=== PATIENT | female | born 1990 | race Caucasian/White ===

== ENCOUNTER 2017-02-16 18:50 | Emergency (ER) | payer MEDICAID, SELFPAY | END 2017-02-16 20:15 | disposition left against medical advice (07) | LOC: ER 20:25 | PROVIDERS: Emergency Provider Emergency Medicine; Family Provider Family Medicine | DX: Z53.29 Procedure and treatment not carried out because of patient's decision for other reasons (principal) | CPT/HCPCS: 99211 ==

== ENCOUNTER → 2020-05-01 13:46 | Outpatient (CLI) | payer MEDICAID, SELFPAY ==
[2020-05-01 15:23] LABS: HCG,Quantitative < 2 mIU/ml (0-5.42)
== END ==
PROVIDERS: Visit Provider Nurse Practitioner Obstetrics & Gynecology
DX: Z34.90 Encounter for supervision of normal pregnancy, unspecified, unspecified trimester (principal)
CPT/HCPCS: 36415; 84702

== ENCOUNTER → 2020-08-24 11:28 | Outpatient (CLI) | payer MEDICAID, SELFPAY ==
[2020-08-24 14:05] LABS: HCG,Quantitative 109040 mIU/ml (0-5.42)
== END ==
PROVIDERS: Visit Provider Nurse Practitioner Obstetrics & Gynecology
DX: Z34.91 Encounter for supervision of normal pregnancy, unspecified, first trimester (principal)
CPT/HCPCS: 36415; 84702

== ENCOUNTER → 2020-09-03 08:05 | Outpatient (CLI) | payer MEDICAID, SELFPAY ==
--- NOTE | 2020-09-03 08:06 | US_ITS ---
PROCEDURE: US OB <= 14 WEEKS FETUS CLINICAL INDICATION: for dates COMPARISON: No exams were available for comparison FINDINGS: An intrauterine gestational sac is present with a pole with a crown-rump length of 5.9cm correlating to gestational age of 12weeks 5days. heart tones are present with an FHR of 139bpm. Yolk sac is noted. Focal anechoic lesion is noted in the right ovary measuring up to 2.2 x 1.6 centimeters, may represent a cyst. IMPRESSION: Single viable intrauterine gestation with gestational age of 12 weeks and 5 days. Estimated due date by Ultrasound is 03/13/2021 Dictated by: Apple Jiang 09/03/2020 10:57 Apple Jiang in [facility] 09/03/2020 10:57
== END ==
PROVIDERS: PCP Family Medicine; Visit Provider Nurse Practitioner Obstetrics & Gynecology
DX: Z34.91 Encounter for supervision of normal pregnancy, unspecified, first trimester (principal)
CPT/HCPCS: 76801

== ENCOUNTER → 2020-09-10 14:06 | Outpatient (CLI) | payer MEDICAID, SELFPAY ==
[2020-09-10 14:46] LABS: Basophils % 0.2 % (0.1-2.0); Eosinophils # 0.1 K/mm3 (0.0-0.4); Eosinophils % 1.3 % (0.1-12.0); Hematocrit 37.7 % (37.0-47.0); Hemoglobin 12.5 g/dL (12.2-16.2); Lymphocytes # 1.5 K/mm3 (0.7-4.5); Lymphocytes % 20.5 % (10-50); Mean Corpuscular HGB Conc 33.2 g/dL (31.8-35.4); Mean Corpuscular Hemoglobin 30.8 pg (27.0-31.2); Mean Corpuscular Volume 92.7 fl (81-99); Mean Platelet Volume 7.3 fl (7.4-10.4); Monocytes # 0.4 K/mm3 (0.1-1.0); Monocytes % 4.9 % (1.7-9.3); Neutrophils # 5.3 K/mm3 (1.8-7.8); Neutrophils % 73.1 % (37.0-80.0); Platelet Count 241 K/mm3 (142-424); Red Blood Count 4.07 M/mm3 (4.20-5.40); Red Cell Distribution Width 12.7 % (11.5-17.5); White Blood Count 7.2 K/mm3 (4.8-10.8)
[2020-09-12 08:32] LABS: HIV Screen 4th Generation wRfx Non Reactive (Non Reactive); HSV 1 IgG, Type Spec <0.91 index (0.00-0.90); HSV 2 IgG, Type Spec <0.91 index (0.00-0.90)
[2020-09-12 09:23] LABS: Hepatitis B Surface Antigen Negative (Negative); Hepatitis C Antibody <0.1 s/co ratio (0.0-0.9)
[2020-09-12 14:07] LABS: Rapid Plasma Reagin Ab Titer Non Reactive (NonRea<1:1)
== END ==
PROVIDERS: Visit Provider Nurse Practitioner Obstetrics & Gynecology
DX: Z34.01 Encounter for supervision of normal first pregnancy, first trimester (principal); Z3A.01 Less than 8 weeks gestation of pregnancy
CPT/HCPCS: 36415; 85025; 86592; 86695; 86703; 86762; 86790; 86850; 87340; 87380; G0432

== ENCOUNTER → 2020-10-23 15:07 | Outpatient (CLI) | payer MEDICAID, SELFPAY ==
--- NOTE | 2020-10-23 15:08 | US_ITS ---
PROCEDURE: US OB /MATERNAL DETAIL CLINICAL INDICATION: 20 WEEK GESTATION COMPARISON: US US OB <= 14 WEEKS FETUS from 09/03/2020 FINDINGS: Single live fetus is present in cephalic presentation. The cervix is closed measuring 5 cm transabdominal. The placenta is posterior and grade 1. No previa or abruption.. Complete survey performed and was unremarkable on the submitted images as in PACS. No discrete anomalies identified on survey imaging by technologist. Active fetus. Three-vessel cord with satisfactory umbilical cord insertion. 4- chamber heart noted. Survey of brain & ventricles Unremarkable. Face and neck survey unremarkable. Diaphragm and chest views unremarkable. Abdomen: Both kidneys noted and unremarkable. Stomach noted and satisfactory. Spine: Survey of the spine satisfactory with no anomalies identified nor imaged. Both arms and legs noted. Amniotic Fluid: Adequate. Maternal adnexa: No significant findings. Measurements: Average ultrasound age 19weeks 6days. Gestational Age 19weeks 6days Estimated due date by ultrasound age 0103/13/2021. Estimated weight 323g BPD = 19weeks 6days OFD = 20weeks HC = 19weeks 2days AC = 20weeks 2days FL = 19weeks 6days Growth Percentile= 51% Heart Rate = 149bpm Cerebellum = 19weeks 6days Humerus = 19weeks 4days HC/AC is 1.09 CI is 0.79 FL/BPD is 0.69 FL/AC is 0.21 IMPRESSION: Live IUP at 19 weeks 6 days in cephalic presentation. No obvious anomalies. Please see above for detail. Dictated by: Walker Najera MD 10/26/2020 09:05 Walker Najera MD in [facility] 10/26/2020 09:05
== END ==
PROVIDERS: PCP Family Medicine; Visit Provider Nurse Practitioner Obstetrics & Gynecology
DX: Z36.0 Encounter for antenatal screening for chromosomal anomalies (principal)
CPT/HCPCS: 76811

== ENCOUNTER → 2020-12-12 11:52 | Outpatient (CLI) | payer MEDICAID, SELFPAY ==
[2020-12-12 13:41] LABS: Glucose 1 Hour 94 mg/dL (74-100)
[2020-12-12 14:30] LABS: Glucose,Fasting 91 mg/dl (74-100)
== END ==
PROVIDERS: Visit Provider Nurse Practitioner Obstetrics & Gynecology
DX: Z34.90 Encounter for supervision of normal pregnancy, unspecified, unspecified trimester (principal)
CPT/HCPCS: 36415; 82951

== ENCOUNTER → 2021-02-12 17:14 | Outpatient (CLI) | payer MEDICAID, SELFPAY | PROVIDERS: Visit Provider Nurse Practitioner Obstetrics & Gynecology | DX: Z34.90 Encounter for supervision of normal pregnancy, unspecified, unspecified trimester (principal); Z3A.35 35 weeks gestation of pregnancy | CPT/HCPCS: 86403 ==

== ENCOUNTER → 2021-03-06 14:40 | Outpatient (CLI) | payer MEDICAID, SELFPAY ==
[2021-03-06 15:22] LABS: Basophils # 0.1 K/mm3 (0-0.2); Basophils % 0.6 % (0.1-2.0); Eosinophils # 0.1 K/mm3 (0.0-0.4); Eosinophils % 0.6 % (0.1-12.0); Hematocrit 36.6 % (37.0-47.0); Hemoglobin 12.4 g/dL (12.2-16.2); Lymphocytes # 1.5 K/mm3 (0.7-4.5); Lymphocytes % 16.7 % (10-50); Mean Corpuscular HGB Conc 33.8 g/dL (31.8-35.4); Mean Corpuscular Hemoglobin 34.5 pg (27.0-31.2); Mean Corpuscular Volume 102.1 fl (81-99); Mean Platelet Volume 8.5 fl (7.4-10.4); Monocytes # 0.4 K/mm3 (0.1-1.0); Monocytes % 4.5 % (1.7-9.3); Neutrophils # 6.9 K/mm3 (1.8-7.8); Neutrophils % 77.6 % (37.0-80.0); Platelet Count 238 K/mm3 (142-424); Red Blood Count 3.58 M/mm3 (4.20-5.40); Red Cell Distribution Width 13.4 % (11.5-17.5)
[2021-03-06 16:07] LABS: Anion Gap 11.7 mEq/L (5-15); Blood Urea Nitrogen 5 mg/dl (7-17); Calcium 9.1 mg/dl (8.4-10.2); Carbon Dioxide 22 mmol/L (22.0-30.0); Chloride 103 mmol/L (98-107); Estimated Glomerular Filt Rate 190 ml/min (>60); GFR (African American) 230 ML/MIN (>60); Glucose 90 mg/dl (74-100); Potassium 3.7 mmoL/L (3.5-5.1); Sodium 133 mmol/L (136-145)
== END ==
PROVIDERS: Visit Provider Nurse Practitioner Obstetrics & Gynecology
DX: Z34.90 Encounter for supervision of normal pregnancy, unspecified, unspecified trimester (principal)
CPT/HCPCS: 36415; 80048; 85025; C9803; U0003; U0005

== ENCOUNTER 2021-03-08 04:54 | Inpatient (IN) | payer MEDICAID, SELFPAY ==
[2021-03-08] VITALS (8 sets, daily range): BP systolic 107–147; BP diastolic 59–88; PULSE 68–98; RESP 16–18; TEMP 36.5; O2SAT 98–100; BMI 40.2
[2021-03-08 06:21] LABS: Microscopic, Urine URINE MICROSCOPIC (MICROSCOPIC)
[2021-03-08 06:21] LABS: Coronavirus 19, PCR Not Detected (NotDetected); Influenza A, PCR Not Detected (NotDetected); Influenza B, PCR Not Detected (NotDetected)
[2021-03-08 06:23] LABS: Appearance,Urine CLEAR (Clear); Bilirubin,Urine Negative (Negative); Blood, Urine Negative (Negative); Color,Urine YELLOW (Yellow); Glucose,Urine (UA) Negative (Negative); Ketones,Urine Negative (Negative); Leukocyte Esterase,Urine TRACE (Negative); Nitrate,Urine Negative (Negative); Protein,Urine Negative (Negative); Urobilinogen,Urine 0.2 EU/dl (0.2)
--- NOTE | 2021-03-08 07:13 | P.PN_ITS ---
[facility] Anesthesia Checklist - Patient Identification Patient Identification: Arm Band, Verbal (Name & ) - Structural Data Admitted From: Home Planned Operative Procedure/s: Repeat Consent for Planned Operative Procedure(s) Verified: Yes Verified Documents: Surgical Consent - NPO Status Verified Time NPO: 00:00 - Chart Verification Results Verified: CBC, BMP - Airway Assessment C-Spine Mobility Assessed: Yes TMJ Mobility Assessed: Yes Dentition: Good Dentition - Neurological Assessment Level of Consciousness: Awake, Alert, Appropriate - Anesthesia Plan Anesthesia Risk discussed: Yes ASA Class: II Anesthesia Type: Spinal [facility] History I have reviewed the patient's past medical history: Yes *Have you ever received a pneumonia vaccine?: No *Have you received a flu vaccine this season?: No Anesthesia experience/problems:: none Other Surgeries: Yes: No Previous Surgery, Amputation: No Fractures: No - *Social History Smoking Status: Never smoker Alcohol Intake: never Alcohol Intake Frequency:: other Substance Use Type: denies use *Occupational Status:: employed *Travel in the last 8 weeks: None Family Hx:: No significant family history Para: 4
[2021-03-08 07:48] LABS: Barbiturates Screen,Urine Negative ng/ml (<200)
[2021-03-08 07:49] LABS: Amphetamine/Metha Screen,Urine Negative ng/ml (<1000); Benzodiazepines Screen,Urine Negative ng/ml (<200)
[2021-03-08 07:50] LABS: Cannabinoid Screen,Urine Negative ng/ml (<50); Cocaine Screen,Urine Negative ng/ml (<300)
[2021-03-08 07:51] LABS: Methadone Screen,Urine Negative ng/ml (<300)
[2021-03-08 07:52] LABS: Opiate Screen,Urine Negative ng/ml (<300); Phencyclidine Screen,Urine Negative ng/ml (<25)
--- NOTE | 2021-03-08 08:26 | HMH.OPNOTE ---
Date of procedure: 03/08/21 Pre-op Diagnosis:: Term , previous section, umbilical hernia Post-op Diagnosis:: Term , previous section, umbilical hernia Procedure performed:: Repeat lower segment transverse section. Surgeon:: Serg Lara MD Employment Appeals Examiner(s):: Dr. White RECEIVING WORKER:: Surendra Tate Anesthesia: spinal Estimated blood loss (mL): 1,000 Clinical Note:: She is a 30-year-old 4 para 3 at 39+ weeks gestational age. She has had a previous section for twins and as a result of that was offered repeat lower segment transverse section at term. She also had an umbilical hernia and we were going to have Dr. White fix this intraoperatively. Operative findings:: She delivered a liveborn male child at 7:47 AM on the morning of March 11, 2021. The baby weighed 8 pounds 1 ounce and had Apgars of 8 at 1 minute and 9 at 5 minutes. Ovaries and tubes appeared normal. Operative note:: She was taken to the operating room where spinal anesthesia was found be adequate. She was prepped and draped in normal sterile fashion in the supine position with a leftward tilt. A Luo catheter was in the bladder. A Pfannenstiel skin incision was made with knife then carried through to the underlying layer of fascia with cautery. The fascia was opened in the midline with cautery and extended laterally using Berrios scissors. Heydi clamps were applied to the superior aspect of the fascial incision which was tented up and the underlying rectus muscles dissected off using cautery. The Heydi clamps were then applied to the inferior aspect of the fascial incision which in a similar fashion was tented up and the underlying rectus muscles dissected off using cautery. The rectus muscles were then in the midline, the peritoneum identified, and entered sharply with Metzenbaum scissors. This incision was then extended superiorly and inferiorly with cautery. We had good visualization of the bladder inferiorly. We then inserted an extra-large Octavio retractor. The bladder peritoneum was then opened in the midline and extended laterally using Metzenbaum scissors. A bladder flap was created digitally. Transverse incision was made through the uterine muscle to the amnion. This incision was then extended laterally using fingers traction. The amnion was entered sharply with knife. There was clear amniotic fluid. The 's head was then delivered atraumatically. A loose nuchal cord was then reduced. This was followed by the anterior shoulder and the rest of the infant's body atraumatically. The oropharynx and nasopharynx were bulb suctioned. The infant was then handed off to Dr. fuentes who assigned Apgars of 8 at 1 minute and 9 at 5 minutes. We then obtained cord blood. Using gentle traction on the cord and countertraction on the fundus I was able to easily deliver the placenta intact. It had a normal three-vessel cord. The uterus was then cleared of clots and debris . The uterine incision was then closed using running 0 Vicryl suture in a locked fashion. A second layer of the same suture was used to imbricate the first layer. The bladder peritoneum was then closed using running 2-0 Vicryl suture in a locked fashion. The gutters and cul-de-sac were then cleared of clots and debris . There was some bleeding on the right-hand side of the incision and we noted that there was a hematoma posteriorly. I opened up the retroperitoneum posteriorly and found a small blood vessel that was bleeding. We applied a surgical clip across this. We then inserted a large piece of Gelfoam in the defect of the posterior retroperitoneum. I also then placed a large piece of Surgicel over this. Once again hemostasis was assured. The uterus was then returned to the abdominal cavity. The peritoneum was grasped with Asmita clamps and closed using running 2-0 Vicryl suture. The rectus muscles were then reapproximated using running 0 Vicry
--- NOTE | 2021-03-08 08:33 | HMH.OBAPHP ---
OB - H&P: HPI Antepartum - History of Present Illness Chief complaint: Term , previous section History of present illness: She is a 30-year-old 4 para 3 who had twins with her last . She had a for the twins. As result of that she is offered repeat lower segment transverse section at term. - History of Present Criteria for establishing EDC:: LMP confirmed by 1st trimester US care: good care Ultrasounds: normal 1st trimester US Obstetrical complications: previous Medical complications: none - Labs Blood type: O (+) positive Rubella: immune RPR/VDRL: nonreactive GBS status: negative HBsAG: negative [facility] History I have reviewed the patient's past medical history: Yes *Have you ever received a pneumonia vaccine?: No *Have you received a flu vaccine this season?: No Anesthesia experience/problems:: none Other Surgeries: Yes: No Previous Surgery, Amputation: No Fractures: No - *Social History Smoking Status: Never smoker Alcohol Intake: never Alcohol Intake Frequency:: other Substance Use Type: denies use *Occupational Status:: employed *Travel in the last 8 weeks: None Family Hx:: No significant family history Para: 4 Review of Systems - Review of Systems Review of systems:: pertinent systems reviewed and negative unless documented below Meds Home Medications Medication Instructions Recorded Confirmed Type Multivit-Minerals/Folic Acid 2 tab PO DAILY 03/08/21 03/08/21 History [Womens Daily Gummies] RX: Valacyclovir HCl [Valacyclovir] 1,000 mg PO DAILY 03/08/21 03/08/21 History Allergies Allergy/AdvReac Type Severity Reaction Status Date / Time No Known Allergies Allergy Verified 03/05/21 10:03 OB - H&P: Exam - Physical Exam Vital signs: Temp Pulse Resp BP Pulse Ox 97.7 F 98 H 18 147/88 H 99 03/08/21 06:25 03/08/21 06:25 03/08/21 06:25 03/08/21 06:25 03/08/21 06:25 - Constitutional no acute distress - Routine HEENT Exam Head: Present: normocephalic Eye: Present: EOMI, PERRL ENT: Present: mucous membranes moist - Routine Neck Exam Present: supple, full ROM - Routine Respiratory Exam Absent: accessory muscle use (good air entry bilaterally), respiratory distress, wheezes, crackles - Routine Cardiovascular Exam Present: RRR. Absent: murmur - Routine Abdominal Exam Present: soft, normoactive bowel sounds. Absent: tenderness, distended, guarding - Routine Rectal Exam Patient deferred: visual exam, digital exam - Routine Exam Patient deferred: external exam, groin exam, perineal exam - Routine Extremities Exam Present: full ROM. Absent: cyanosis, edema - Routine Skin Exam Present: intact. Absent: cyanosis - Routine Neurological Exam Present: alert, oriented X3 - Routine Psychiatric Exam Present: normal affect OB - Results - Labs Labs: Urine 03/08/21 Range/Units 05:05 Urine Color Yellow (Yellow) Urine Appearance Clear (Clear) Urine pH 6.0 (5.0-8.5) Ur Specific [place] 1.020 (1.005-1.030) Urine Protein Negative (Negative) Urine Glucose (UA) Negative (Negative) OB - A/P Antepartum (1) Previous section complicating Status: Acute (2) Delivery by section of full-term infant Status: Acute (3) Umbilical hernia Status: Acute - Additional Plan Planning to breastfeed?: No Plan: other Additional Information:: She is here for repeat lower segment transverse section at term.
--- NOTE | 2021-03-08 08:35 | P.PN_ITS ---
[facility] Anesthesia Record Part I Intake, IV Amount: 2,000 Estimated blood loss (mL): 1,000 Urine output (mL): 200 Blood Pressure: 112/59 SaO2: 98 Pulse Rate: 76 Respiratory Rate: 16 Temperature: 97.7 F Patient is:: Awake, Stable Stable to PACU at:: 08:30
--- NOTE | 2021-03-08 12:46 | HMH.PHAVTE ---
[facility] Pharmacy VTE Monitoring - Patient Demographics Admission date: 03/08/21 Report Date: 03/08/21 Time: 12:46 Allergies/Adverse Reactions: Patient Allergies No Known Allergies Allergy (Verified 03/05/21 10:03) Height: 1.57 m Weight: 99.79 kg Patient Problems: Current Active Problems Previous section complicating (Acute) Delivery by section of full-term (Acute) Umbilical hernia (Acute) - Prophylaxis VTE Prophylaxis Ordered?: Yes Types of VTE Prophylaxis: IPCS Thigh High Location of Applied Device: Bilateral Lower Extremeties
[2021-03-08 13:08] LABS: Microscopic,Cath URINE MICROSCOPIC (MICROSCOPIC)
[2021-03-08 13:14] LABS: Appearance,Urine/Cath CLEAR (Clear); Bilirubin,Cath Negative (Negative); Blood, Urine/Cath Negative (Negative); Color,Urine/Cath YELLOW (Yellow); Glucose,Urine/Cath (UA) Negative (Negative); Ketones,Urine/Cath Negative (Negative); Leukocyte Esterase,Cath Negative (Negative); Nitrate,Cath Negative (Negative); Protein,Urine/Cath Negative (Negative); Specific Gravity, Urine/Cath <= 1.005 (1.005-1.030); Urobilinogen,Cath 0.2 EU/dl (0.2)
[2021-03-08 13:17] LABS: RBC,Urine/Cath Occasional # /hpf (0-3); Squamous Epithelial Ur./Cath Occasional #/hpf (0-5); WBC,Urine/Cath Occasional #/hpf (0-3)
--- NOTE | 2021-03-08 13:42 | P.PN_ITS ---
[facility] Anesthesia Record Part II Discharge Time: 09:00 Destination: Obstetric PACU nurse assessment reviewed?: Yes Patient Condition:: Good Anesthesia Complications:: None Swallowing reflex intact?: Yes Cyanosis?: No Blood Pressure: 120/77 Pulse Rate: 75 Temperature: 97.7 F Mental Status: Alert & Oriented Pain level:: 0 Nausea and/or vomitting:: None Intake, IV Amount: 0
[2021-03-09 00:07] VITALS: RESP 18
[2021-03-09 02:53] VITALS: RESP 18
[2021-03-09 09:13] VITALS: BP 138/76; PULSE 107; RESP 20; TEMP 36.6; O2SAT 100
[2021-03-09 09:35] LABS: Hematocrit 34.1 % (37.0-47.0); Hemoglobin 11.6 g/dL (12.2-16.2)
--- NOTE | 2021-03-09 10:36 | P.PN_ITS ---
Internal Medicine - PN: Subj *Date: 03/09/21 *Time: 10:36 (This is and postoperative day #1. The patient is af ebrile. Vital signs stable. Wound clean.. Abdomen soft. Uterine fundus involuting well. Hgb 9.6 g. Lochia: Normal.: Stable.) Exam Vital signs and Labs for Last 24 Hours: Temp Pulse Resp BP Pulse Ox 97.8 F 107 H 20 138/76 100 03/09/21 09:13 03/09/21 09:13 03/09/21 09:13 03/09/21 09:13 03/09/21 09:13 Laboratory Results - last 24 hr 03/08/21 07:35: Urine Color Yellow, Urine Appearance Clear, Urine pH 6.0, Ur Specific [place] <= 1.005, Urine Protein Negative, Urine Glucose (UA) Negative, Urine Ketones Negative, Urine Blood Negative, Urine Nitrate Negative, Urine Bilirubin Negative, Urine Urobilinogen 0.2, Ur Leukocyte Esterase Negative, Urine RBC Occasional, Urine WBC Occasional, Ur Squamous Epith Cells Occasional, Urine Bacteria None 03/09/21 08:00: Hgb 11.6 L, Hct 34.1 L I & O for Last 24 hours: Intake & Output 03/06/21 03/07/21 03/08/21 03/09/21 11:59 11:59 11:59 11:59 Intake Total 1999 0 / 0 Balance 1999 0 / 0 Weight 220 lb Assessment and Plan (1) Previous section complicating Status: Acute Category: Surgical Code(s): O34.219 - Maternal care for unspecified type scar from previous delivery (2) Delivery by section of full-term infant Status: Acute Category: Medical Code(s): O82 - Encounter for delivery without indication (3) Umbilical hernia Status: Acute Category: Medical Code(s): K42.9 - Umbilical hernia without obstruction or gangrene
[2021-03-09 21:26] VITALS: RESP 18
[2021-03-10 01:56] VITALS: RESP 16
[2021-03-10 06:30] VITALS: RESP 16
[2021-03-10 08:31] VITALS: BP 127/85; PULSE 81; RESP 18; TEMP 36.7; O2SAT 100
--- NOTE | 2021-03-10 10:23 | HMH.ACPN2 ---
Internal Medicine - PN: Subj *Date: 03/10/21 *Time: 10:23 (This is and postoperative day #2. Patient is afebrile. Vital signs stable. Wound clean. Abdomen soft. Lochia normal. Uterine fundus involuting well. Globin 11.6 g. She will be discharged today.) Exam Vital signs and Labs for Last 24 Hours: Temp Pulse Resp BP Pulse Ox 98.1 F 81 18 127/85 100 03/10/21 08:31 03/10/21 08:31 03/10/21 08:31 03/10/21 08:31 03/10/21 08:31 I & O for Last 24 hours: Intake & Output 03/07/21 03/08/21 03/09/21 03/10/21 11:59 11:59 11:59 11:59 Intake Total 1999 0 / 0 Balance 1999 0 / 0 Weight 220 lb Assessment and Plan (1) Previous section complicating Status: Acute Category: Surgical Code(s): O34.219 - Maternal care for unspecified type scar from previous delivery (2) Delivery by section of full-term Status: Acute Category: Medical Code(s): O82 - Encounter for delivery without indication (3) Umbilical hernia Status: Acute Category: Medical Code(s): K42.9 - Umbilical hernia without obstruction or gangrene
--- NOTE | 2021-03-10 10:25 | P.DS_ITS ---
General - General Admission date:: 03/08/21 Discharge date: 03/10/21 (This 30-year-old 4, now para 4, Ab0 white female was admitted at 39-2/7 weeks for repeat section. She also was noted to have an abdominal hernia, which will be repaired at a later date. The date of admission, she was taken to the operating room, where she underwent a repeat low transverse cervical section, without complications. The baby was an 8/9, 8 pound 1 ounce, 20 inch male infant, who is bottlefeeding, has been circumcised, and has done well. and postoperatively, the patient has done well. She is eating and ambulating, and has had a bowel movement. Her wound is clean. Her abdomen is soft. Her lochia is normal. Her uterine fundus has involuted well. Her hemoglobin is 11.6 g. She is discharged home on the second /postoperative day on iron and vitamins, and on Percocet 5/325 (#20), 1 p.o. every 6 hours as needed pain. She is given appropriate instructions as to diet, exercise, and wound care, and she is to return to Dr. Lara's office as scheduled for care. Her blood type is O+. Her rubella titer is immune.) Hospital Course Rhogam Administration: Not Indicated Objective Vital signs: Temp Pulse Resp BP Pulse Ox 98.1 F 81 18 127/85 100 03/10/21 08:31 03/10/21 08:31 03/10/21 08:31 03/10/21 08:31 03/10/21 08:31 DS: Diagnosis - Discharge Diagnosis (1) Previous section complicating Status: Acute (2) Delivery by section of full-term infant Status: Acute (3) Umbilical hernia Status: Acute Discharge Plan - Patient Discharge Instructions Additional Instructions: Nothing in the vagina for 6 weeks, no heavy lifting or strenuous activity. Patient Instructions: Depression, Hemorrhage, DI for Pre- eclampsia, DI for Surgical Site Infection, DI for Postoperative Pain, [facility] Post Discharge Instructions, Preventing the Spread of Coronavirus Discharge Instructions - Follow up Plan Follow up with: Jhonny White MD [Staff Physician] - 1 month Condition at discharge:: Stable Home Medications: Home Medications Medication Instructions Recorded Confirmed Type Multivit-Minerals/Folic Acid 400 mcg PO DAILY 03/08/21 03/08/21 History [Womens Daily Gummies] Valacyclovir HCl [Valacyclovir] 1,000 mg PO DAILY 03/08/21 03/08/21 History Prescriptions/Medication Reconciliation: Continued Valacyclovir HCl [Valacyclovir] 1,000 mg PO DAILY Multivit-Minerals/Folic Acid [Womens Daily Gummies] 400 mcg PO DAILY - Problem Reconciliation Problems Reviewed?: Yes
== END 2021-03-10 13:05 | disposition home or self-care (01) | DRG 788 ==
PROVIDERS: Admitting Provider Nurse Practitioner Obstetrics & Gynecology; PCP Family Medicine; Visit Provider Nurse Practitioner Obstetrics & Gynecology
PROC: 10D00Z1 Extraction of Products of Conception, Low, Open Approach (ICD-10-PCS; CPT 59514; principal; 2021-03-08 07:30)
DX: O34.211 Maternal care for low transverse scar from previous cesarean delivery (principal); K42.9 Umbilical hernia without obstruction or gangrene; Z3A.39 39 weeks gestation of pregnancy; N85.8 Other specified noninflammatory disorders of uterus; Z37.0 Single live birth
CPT/HCPCS: 59514; 36415; 59025; 80048; 80305; 81001; 85014; 85018; 85025; 86850; 94761; C9290; C9803; G0283; J2405; U0003; U0005

== ENCOUNTER 2023-07-06 18:52 | Emergency (ER) | payer MEDICAID, SELFPAY ==
[2023-07-06 19:10] VITALS: BP 222/124; PULSE 75; RESP 20; TEMP 36.8; O2SAT 98; BMI 34.7
[2023-07-06] MEDS: TET/DIPHTH/PERT-ADULT 0.5ML SYRINGE 0.5 ML IM (19:34)
--- NOTE | 2023-07-06 19:58 | ED_ITS ---
Discharge Plan Disposition Patient Disposition: Home, Self-Care Condition: Good Prescriptions Prescriptions: New losartan 25 mg tablet 25 mg PO DAILY Qty: 7 0RF azithromycin [Zithromax Z-Aravind] 250 mg tablet See Rx Instructions .ROUTE .COMPLEX 5 Days Qty: 6 0RF Rx Instructions: For 250 mg dose pack: take 500 mg today (day 1), then 250 mg for 4 days (days 2-5) No Action norgestimate-ethinyl estradiol [Sprintec (28)] 0.25-35 mg-mcg tablet 1 tab PO DAILY Qty: 28 12RF Referrals Follow up/Referrals: Sony Naqvi [Primary Care Provider] - See instructions Activity Restrictions/Add. Instructions Additional Instructions/Restrictions: Take medication as prescribed Follow up with your family Doctor in the next couple of days for blood pressure recheck and further treatment Clean wounds well with antibacterial soap and water Follow up with your Family Doctor if any signs of infection Clinical Impressions Clinical Impression: Cat scratch Instructions Patient Instructions: Losartan, Azithromycin, DI for Cat Scratch Disease/Fever Discharge ED Provider: Lo Velasquez [facility] General Stated complaint: AO05/ cat scrathes on scalp Mode of Arrival: Ambulatory Source of Information: Patient Limitations: No Limitations Time Seen by Provider: 07/06/23 19:58 Description of Symptoms (Recalled from Triage Doc. by RN): PATIENT C/O CAT SCRATCHES TO HEAD AND FACE TODAY HEENT Symptoms (Recalled from RN notes): Yes Resp Symptoms (Recalled from RN notes): No Skin Symptoms (Recalled from RN notes): Yes MS Symptoms (Recalled from RN notes): No Functional Status (Recalled from RN notes): WNL History of Present Illness Provider Complaint: Patient states that she was at home and she was holding her cat when it got startled by a dog and the cat climb her scratching her several times on her face, on top of her head and her hand States that she was worried about infection and not sure when her last tetanus shot was so she came in Related Data Previous Rx's Medication Instructions Recorded norgestimate 0.25 mg-ethinyl 1 tab PO DAILY #28 tabs 08/07/22 estradiol 35 mcg tablet (Sprintec (28)) azithromycin 250 mg tablet See Rx Instructions PO .COMPLEX 5 07/06/23 (Zithromax Z-Aravind) days #6 tabs losartan 25 mg tablet 25 mg PO DAILY #7 tabs 07/06/23 Allergies Allergy/AdvReac Type Severity Reaction Status Date / Time No Known Allergies Allergy Verified 08/07/22 11:16 Worker's Comp Is this a Worker's Comp case?: [facility]: The information contained in this section may have been updated after the patient was seen, as this information can be updated by other users. Medical History (Updated 07/06/23 @ 20:13 by Lo Velasquez APRN) delivery delivered Family History (Updated 08/07/22 @ 11:18 by Nita Rae CMA) Other Alcoholism Anemia Asthma Hypertension Thyroid disorder Social History Smoking Status: Never smoker second hand exposure: No alcohol intake: never substance use type: denies use current occupational status: employed Travel in the last 8 weeks: None ROS Obtained: Yes All systems reviewed & no additional complaints except as documented and Yes Systems reviewed as appropriate & no additional complaints except as documented Constitutional Constitutional: Reports system reviewed and no additional complaints, except as documented ENT Ears, Nose, Mouth, and Throat: Reports system reviewed and no additional complaints, except as documented and Reports as per HPI Cardiovascular Cardiovascular: Reports system reviewed and no additional complaints, except as documented and Reports as per HPI Respiratory Respiratory: Reports system reviewed and no additional complaints, except as documented and Reports as per HPI Gastrointestinal Gastrointestingal: Reports system reviewed and no additional complaints, except as documented and as per HPI Integumentary/Breasts Skin/Breast: Reports system reviewed and no additional complaints, except as documented, Reports as per HPI and Reports other Comments: multiple cat scratches on face, head and hand Physical Exam General General appearance: alert and in no apparent distress ENT ENT exam: Present mucous membranes moist Respiratory Respiratory exam: Present normal lung sounds bilaterally; Absent respiratory distress or wheezes Cardiovascular Cardiovascular exam: Present regular rate, normal rhythm and normal heart sounds Abdominal Exam Abdominal exam: Present soft and normal bowel sounds; Absent distention or tenderness Neurological Exam Neurological exam: Present alert, oriented X3 and normal gait Skin Skin exam: Present other (multiple superficial cat scratches on head, face and hand no active bleeding at this time) Medical Decision Making Frank Inquiry Pt receiving controlled substance: No Frank was queried for this patient: No Vital Signs: 07/06/23 19:10 Temperature 98.2 F Temperature Source Oral Pulse Rate [Left Brachial] 75 Respiratory Rate 20 Blood Pressure [Left Arm] 222/124 H Blood Pressure Mean [Left Arm] 156 Blood Pressure Source [Left Arm] Automatic Cuff Blood Pressure Position [Left Arm] Sitting 02 Sat by Pulse Oximetry 98 Oxygen Delivery Method Room Air Orders (Tests/Meds): ED MEDICATIONS Generic Name Dose Route Start Last Admin Trade Name Freq PRN Reason Stop Dose Admin Tetanus/Reduced Diphtheria/Acell Pertussis 0.5 ml 07/06/23 19:23 07/06/23 19:34 Tet/Diphth/Pert-Adult 0.5ml Syringe IM 07/06/23 19:24 0.5 ml .ONCE ONE Administration Medical Decision Narrative: Patients blood pressure found to be elevated checked multiple times still found to be elevated without headache and without vision changes will start on Losartan 25mg daily Patient advised that they cleaned wound well with peroxide and soap
[2023-07-06 20:04] VITALS: BP 192/106
[2023-07-06 20:17] VITALS: BP 192/106; PULSE 75; RESP 20; TEMP 36.8; O2SAT 98
[2023-07-06 20:34] LABS: Apearance,Urine Cloudy (Clear); Bilirubin,Urine Negative (Negative); Blood, Urine 1+ (Negative); Color,Urine Yellow (Yellow); Glucose,Urine (UA) Negative (Negative); Ketones,Urine Negative (Negative); Protein,Urine 2+ (Negative); UTC Leukocyte Esterase,Urine 1+ (Negative); UTC Nitrate,Urine Negative (Negative); UTC Pregnancy Test, Urine Negative (Negative); Urobilinogen,Urine 0.2 EU/dl (0.2)
[2023-07-06] MEDS: AZITHROMYCIN 250MG TABLET 500 MG PO (20:47)
== END 2023-07-06 20:47 | disposition home or self-care (01) ==
PROVIDERS: Emergency Provider Nurse Practitioner; PCP Family Medicine
DX: S00.01XA Abrasion of scalp, initial encounter; S60.519A Abrasion of unspecified hand, initial encounter; W55.03XA Scratched by cat, initial encounter; S00.81XA Abrasion of other part of head, initial encounter; N39.0 Urinary tract infection, site not specified; B96.89 Other specified bacterial agents as the cause of diseases classified elsewhere; R30.0 Dysuria; Z23 Encounter for immunization
CPT/HCPCS: 81003; 81025; 87077; 87086; 87088; 90715; 96372; 99204; 99212; G0463

== ENCOUNTER 2024-11-23 15:02 | Emergency (ER) | payer MEDICAID, SELFPAY ==
[2024-11-23 15:07] VITALS: BP 166/110; PULSE 72; RESP 18; TEMP 36.6; O2SAT 100; BMI 36.6
--- NOTE | 2024-11-23 15:18 | XR_ITS ---
PROCEDURE INFORMATION: Exam: XR Complete Acute Abdomen Series Including Chest Exam date and time: 11/23/2024 4:19 PM Age: 33 years old Clinical indication: Abdominal pain; Prior surgery; Surgery date: 6+ months; Surgery type: 2 c-sections TECHNIQUE: Imaging protocol: Radiologic exam. Complete acute abdomen series, including 2 or more views of the abdomen and a single view chest. COMPARISON: No relevant prior studies available. FINDINGS: Lungs: There is mild elevation of the right hemidiaphragm. The lungs appear clear. No focal areas of consolidation. Pleural spaces: No pleural effusions. Negative for pneumothorax. Heart/Mediastinum: Cardiac silhouette and pulmonary vasculature are within range of normal. Gastrointestinal tract: There is a nonobstructive bowel gas pattern. Gas is seen scattered throughout normal caliber loops of large and small bowel. No mural thickening, pneumatosis or portal venous gas. There is mildly excessive colonic stool content. Intraperitoneal space: Postsurgical changes are present within the right hemipelvis. No appreciable soft tissue masses or abnormal calcifications. No free air. Bones/joints: There is a minor S shaped thoracolumbar scoliosis. Soft tissues: No significant abnormalities. IMPRESSION: 1. Nonobstructive bowel gas pattern. 2. Mild constipation. 3. No acute cardiopulmonary pathology.
[2024-11-23 15:31] LABS: Microscopic, Urine URINE MICROSCOPIC (MICROSCOPIC)
[2024-11-23 15:32] LABS: Bilirubin,Urine Negative (Negative); Color,Urine YELLOW (Yellow); Glucose,Urine (UA) Negative (Negative); Hematocrit 38.8 % (37.0-47.0); Hemoglobin 13.6 g/dL (12.2-16.2); Immature Granulocytes % 0.2 %; Ketones,Urine Negative (Negative); Leukocyte Esterase,Urine Negative (Negative); Mean Corpuscular HGB Conc 35.1 g/dL (31.8-35.4); Mean Corpuscular Hemoglobin 32.0 pg (27.0-31.2); Mean Corpuscular Volume 91.3 fl (81-99); Nucleated Red Blood Cells % 0 %; PH,Urine 6.0 (5.0-8.5); Platelet Count 271 K/mm3 (142-424); Protein,Urine Negative (Negative); Red Blood Count 4.25 M/mm3 (4.20-5.40); Red Cell Distribution Width-SD 40.2 fL; Specific Gravity, Urine 1.025 (1.005-1.030); Urobilinogen,Urine 0.2 EU/dl (0.2); White Blood Count 9.2 K/mm3 (4.8-10.8)
[2024-11-23 15:38] LABS: Albumin Level 4.4 g/dl (3.5-5.0); Chloride 104 mmol/L (98-107)
[2024-11-23 15:39] LABS: Potassium 4.0 mmoL/L (3.5-5.1); Sodium 140 mmol/L (136-145)
[2024-11-23 15:41] LABS: Alanine Aminotransferase 12 U/L (12-78); Anion Gap 14.0 mEq/L (5-15); Aspartate Amino Transferase 22 U/L (14-36); Carbon Dioxide 26 mmol/L (22.0-30.0)
[2024-11-23 15:42] LABS: Albumin/Globulin Ratio 1.4 (1.1-1.8); Alkaline Phosphatase 81 U/L (38-126); Bilirubin,Total 0.9 mg/dl (0.2-1.3); Calcium 9.9 mg/dl (8.4-10.2); Globulin 3.2 g/dL (1.3-3.2); Glucose 97 mg/dl (74-100); Lipase 92 U/L (23-300); Total Protein,Serum 7.6 g/dl (6.3-8.2)
[2024-11-23 15:46] LABS: Bacteria,Urine 1+ /lpf; HCG Qualitative, Serum Negative (Negative)
[2024-11-23 16:45] LABS: Blood Urea Nitrogen 15 mg/dl (7-17); Creatinine Clearance Estimated 195 mL/min (50-200); Creatinine,Serum 0.60 mg/dl (0.52-1.04); Estimated Glomerular Filt Rate 117 ml/min (>60); GFR (African American) 141 ML/MIN (>60)
--- NOTE | 2024-11-23 19:09 | CT_ITS ---
PROCEDURE INFORMATION: Exam: CT Abdomen And Pelvis With Contrast Exam date and time: 11/23/2024 8:24 PM Age: 33 years old Clinical indication: Other: Right upper quadrant pain TECHNIQUE: Imaging protocol: Computed tomography of the abdomen and pelvis with contrast. 3D rendering (Not supervised by radiologist): MIP and/or 3D reconstructed images were created by the technologist. Radiation optimization: All CT scans at this facility use at least one of these dose optimization techniques: automated exposure control; mA and/or kV adjustment per patient size (includes targeted exams where dose is matched to clinical indication); or iterative reconstruction. Contrast material: ISOVUE; Contrast volume: 75 ml; Contrast route: IV; COMPARISON: CR XR ACUTE ABDOMEN SERIES 11/23/2024 4:19 PM FINDINGS: Lungs: Incompletely visualized nodule measuring at least 1 cm of the left lung base. Liver: Normal. No mass. Gallbladder and biliary ducts: Normal. No calcified stones. No ductal dilation. Pancreas: Normal. No ductal dilation. Spleen: Normal. No splenomegaly. Adrenal glands: Normal. No mass. Kidneys and ureters: 3 cm simple appearing left renal cortical cyst. No hydronephrosis or hydroureter. Stomach and bowel: Unremarkable. No obstruction. No mucosal thickening. Appendix: Normal appendix. Intraperitoneal space: Unremarkable. No free air. No significant fluid collection. Vasculature: Unremarkable. No abdominal aortic aneurysm. Lymph nodes: Unremarkable. No enlarged lymph nodes. Urinary bladder: Layering hyperdense material within the urinary bladder lumen. Likely representing excreted contrast. Reproductive: Surgical clips in the right adnexal region. Bones/joints: Unremarkable. No acute fracture. Soft tissues: Unremarkable. IMPRESSION: 1. No acute findings. 2. Incompletely visualized nodule measuring at least 1 cm of the left lung base. For both low risk and high risk patients, consider CT Chest at 3 months, PET/CT, or biopsy (Reference: Jasmin). COMMENTS: Consistent with the [employer]'s Incidental Findings Committee white paper (J Am Lorena Radiol 2018): Any incidental renal lesion less than 1 cm or classified as too small to characterize, or any incidental cystic renal lesion characterized as simple-appearing, is likely benign. No follow-up imaging is recommended for these lesions per consensus recommendations based on imaging criteria. REFERENCES: Jasmin Treviño, et al. Guidelines for Management of Incidental Pulmonary Nodules Detected on CT Images: From the Fleischner Society 2017. Radiology. 2017;284(1):228-243.
--- NOTE | 2024-11-23 19:10 | CT_ITS ---
PROCEDURE INFORMATION: Exam: CTA Chest With Contrast Exam date and time: 11/23/2024 8:24 PM Age: 33 years old Clinical indication: Other: Right-sided pleuritic chest pain TECHNIQUE: Imaging protocol: Computed tomographic angiography of the chest with contrast. Exam focused on the arteries. 3D rendering (Not supervised by radiologist): MIP and/or 3D reconstructed images were created by the technologist. Radiation optimization: All CT scans at this facility use at least one of these dose optimization techniques: automated exposure control; mA and/or kV adjustment per patient size (includes targeted exams where dose is matched to clinical indication); or iterative reconstruction. Contrast material: ISO 370; Contrast volume: 75 ml; Contrast route: INTRAVENOUS (IV); COMPARISON: CR XR ACUTE ABDOMEN SERIES 11/23/2024 4:19 PM FINDINGS: Pulmonary arteries: Normal. No pulmonary emboli. Aorta: Motion limits assessment of the ascending aorta. The aorta is otherwise unremarkable. Thymus: Residual thymic tissue in the anterior mediastinum. Lungs: 1 cm nodule in the peripheral subpleural lingula. Pleural spaces: Unremarkable. No pneumothorax. No pleural effusion. Heart: Unremarkable. No cardiomegaly. No pericardial effusion. Lymph nodes: Unremarkable. No enlarged lymph nodes. Bones/joints: Unremarkable. No acute fracture. Soft tissues: Unremarkable. IMPRESSION: 1. No acute findings. 2. 1 cm nodule in the peripheral subpleural lingula. For both low risk and high risk patients, consider CT Chest at 3 months, PET/CT, or biopsy (Reference: Jasmin). REFERENCES: Jasmin H, et al. Guidelines for Management of Incidental Pulmonary Nodules Detected on CT Images: From the Fleischner Society 2017. Radiology. 2017;284(1):228-243.
--- NOTE | 2024-11-23 19:14 | HMH.EDGENADL ---
Discharge Plan Disposition Patient Disposition: Home, Self-Care Condition: Good Prescriptions Prescriptions: New methocarbamol 750 mg tablet 1,500 mg PO TID 7 Days Qty: 42 0RF No Action norgestimate-ethinyl estradiol 0.25-35 mg-mcg tablet See Rx Instructions .ROUTE .COMPLEX Qty: 28 12RF Dose Instruction: TAKE 1 TABLET BY MOUTH EVERY DAY Rx Instructions: TAKE 1 TABLET BY MOUTH EVERY DAY Referrals Follow up/Referrals: Flora Lam APRN [Primary Care Provider, Medical] - See instructions Activity Restrictions/Add. Instructions Additional Instructions/Restrictions: Your pain may be from spasm in the rib cage or abdominal wall. I want you to try taking robaxin to see if this helps your pain. If you have worsening abdominal pain, migration of pain to the lower quadrant, evolution of symptoms/development of new symptoms, or development of fevers with this pain please return. Clinical Impressions Clinical Impression: Right upper quadrant abdominal pain Instructions Patient Instructions: DI for Acute Abdominal Pain Print Language Print Language: [place] Discharge ED Provider: Dhruv Gutierrez General Adult HPI <CHELI Santa - Last Filed: 11/23/24 22:15> General Chief complaint: Abdominal Pain Stated complaint: abdominal pain Time Seen by Provider: 11/23/24 19:03 Mode of Arrival: Ambulatory Source of Information: Patient Description of Symptoms (Recalled from ER Triage Doc. by RN): Pt presents with c/o RUQ abdominal pain x 5 days. Pt states she still has her gallbladder. Pt denies n/v/d, endorses slight constipation. 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 Patient [place] any fever chills denies any overt chest pain, but does have a pleuritic nature of her pain, states it is worse with a deep breath , no real shortness of breath, no nausea no vomiting no constipation no diarrhea no urinary type symptomatology, no hematuria, no melena no medic easier no hematemesis, does endorse vaginal bleeding and states that she is currently on her menstrual cycle , at bedside states this pain started when she got her period . Initial triage vitals are unremarkable, patient denies any alcohol tobacco or drug use, other past medical history consistent with hypertension newly diagnosed on lisinopril. Please note that above description of symptoms, in this electronic medical record under categorization of recalled from ER triage doctor by RN are reflective of an initial nursing assessment, however, is not reflective of my full history and physical exam that was personally taken and clarified. Consequentially, this preceding description of symptoms, which may include the patient's categorized chief complaint in the EMR, do not reflect my personal clinical impression, and the ultimate description of history of present illness and patient stated complaints should be deferred to this section of the note. Unless stated otherwise or congruent with this section of the note, additional signs, symptoms, or incongruence should be interpreted as inaccurate with my clinical impression. Onset (ago): day(s) Related Data Previous Rx's ?Medication ?Instructions ?Recorded norgestimate 0.25 mg-ethinyl See Rx Instructions .Route 08/19/23 estradiol 0.035 mg tablet .COMPLEX #28 tabs methocarbamol 750 mg tablet 1,500 mg (2 x 750 mg) PO TID 7 11/23/24 days #42 tabs Allergies Allergy/AdvReac Type Severity Reaction Status Date / Time No Known Allergies Allergy Verified 11/19/23 13:28 [facility] <CHELI Santa - Last Filed: 11/23/24 22:15> [facility] Disclaimer: The information contained in this section may have been updated after the patient was seen, as this information can be updated by other users. Medical History delivery delivered X2 Family History Other Alcoholism Anemia Asthma Hypertension Thyroid disorder Social History Smoking Status: Never smoker second hand exposure: No alcohol intake: never substance use type: denies use current occupational status: employed Travel in the last 8 weeks?: None Have you lived/traveled outside [place] in past 30 days?: No Contact w/someone who lives/traveled outside US past 30 days?: No Exposure to someone with infectious disease in past 14 days?: No Do you have a fever (greater than 100.4 F or 38 C)?: No Have you tested positive for COVID-19?: No Exposed to someone with COVID-19 in past 14 days?: No Do you have a sore throat?: No Do you have a cough?: No Do you have any weakness?: No Do you have any diarrhea?: No Are you experiencing any unusual bleeding?: No Do you have any muscle aches/pain?: No Do you have any abdominal pain?: No Are you experiencing loss of taste or smell?: No Other Medical History Have you received the Flu Vaccine for this season: No Have you received the Pneumonia Vaccine: No <CHELI Santa - Last Filed: 11/23/24 22:15> ROS Obtained: Yes All systems reviewed & no additional complaints except as documented Physical Exam <CHELI Santa - Last Filed: 11/23/24 22:15> General General appearance: alert and in no apparent distress Head Head exam: atraumatic and normocephalic Eye Eye exam: Present PERRL and EOMI ENT ENT exam: Present mucous membranes moist Neck Neck exam: Present normal inspection Chest Chest inspection: Present normal inspection and symmetric chest wall rise Respiratory Respiratory exam: Present normal lung sounds bilaterally; Absent respiratory distress Cardiovascular Cardiovascular exam: Present regular rate and normal rhythm Abdominal Exam Abdominal exam: Present soft, tenderness and Andrea's sign; Absent guarding, rebound or rigidity Abdominal tenderness: Present RUQ Extremities Exam Extremities exam: Present normal inspection Neurological Exam Neurological exam: Present alert and oriented X3 Psychiatric Psychiatric exam: Present normal affect Skin Skin exam: Present warm and dry Medical Decision Making <CHELI Santa - Last Filed: 11/23/24 22:15> Medical Records Medical records reviewed: Yes I reviewed the patient's medical records. Screening: Per USPSTF and CDC recommendations, given the prevalence of disease in our region, it is our hospital?s policy to screen for HIV and viral Hepatitis for all patients aged 18 and over and those with ongoing risk factors. Frank Inquiry Pt receiving controlled substance: Yes Frank was queried for this patient: No Reason not queried -: Emergent pt cond-no time Risks and benefits of using a controlled substance: were discussed with pt by me Vital Signs: 11/23/24 15:07 11/23/24 19:30 11/23/24 19:52 Temperature 98 F Temperature Source Oral Pulse Rate 72 70 Pulse Rate [Right] 72 Respiratory Rate 18 Blood Pressure 194/110 H 181/126 H Blood Pressure [Right Arm] 166/110 H Blood Pressure Mean [Right Arm] 128 Blood Pressure Source [Right Arm] Automatic Cuff Blood Pressure Position [Right Arm] Sitting 02 Sat by Pulse Oximetry 100 100 99 Oxygen Delivery Method Room Air 11/23/24 20:01 Temperature Temperature Source Pulse Rate 71 Pulse Rate [Right] Respiratory Rate Blood Pressure 185/124 H Blood Pressure [Right Arm] Blood Pressure Mean [Right Arm] Blood Pressure Source [Right Arm] Blood Pressure Position [Right Arm] 02 Sat by Pulse Oximetry 100 Oxygen Delivery Method Lab Data Lab results reviewed: Yes I reviewed the patient's lab results. Lab Results 11/23/24 15:16: WBC 9.2, RBC 4.25, Hgb 13.6, Hct 38.8, MCV 91.3, MCH 32.0 H, MCHC 35.1, RDW 12.3, Plt Count 271, MPV 10.1, Neut % (Auto) 72.9, Lymph % (Auto) 18.3, Greene % (Auto) 6.6, Eos % (Auto) 1.3, Baso % (Auto) 0.7, Neut # (Auto) 6.7, Lymph # (Auto) 1.7, Greene # (Auto) 0.6, Eos # (Auto) 0.1, Baso # (Auto) 0.1, Sodium 140, Potassium 4.0, Chloride 104, Carbon Dioxide 26, Anion Gap 14.0, BUN 15, Creatinine 0.60, Estimated Creat Clear 195, Estimated GFR 117, Est GFR ( Amer) 141, Glucose 97, Calcium 9.9, Total Bilirubin 0.9, AST 22, ALT 12, Alkaline Phosphatase 81, Total Protein 7.6, Albumin 4.4, Globulin 3.2, Albumin/Globulin Ratio 1.4, Lipase 92, Serum HCG, Qual Negative, Urine Color Yellow, Urine Appearance Sl cloudy, Urine pH 6.0, Ur Specific [place] 1.025, Urine Protein Negative, Urine Glucose (UA) Negative, Urine Ketones Negative, Urine Blood Trace-i, Urine Nitrate Negative, Urine Bilirubin Negative, Urine Urobilinogen 0.2, Ur Leukocyte Esterase Negative, Urine RBC None, Urine WBC 3-5, Ur Squamous Epith Cells 5-10, Urine Bacteria 1+, Urine HCG, Qual Negative 11/23/24 19:31: Troponin I < 0.01, NT-Pro-B Natriuret Pep 24.9 11/23/24 15:16 11/23/24 15:16 Orders (Tests/Meds): ED MEDICATIONS Generic Name Dose Route Start Last Admin Trade Name Freshannan PRN Reason Stop Dose Admin Sodium Chloride 10 ml 11/23/24 20:20 11/23/24 20:21 Sodium Chloride 0.9% 10ml Syr (Rad Only) IV 12/23/24 20:19 10 ml NEEDED PRN Administration Maintain IV Site Discontinued Medications Generic Name Dose Route Start Last Admin Trade Name Freq PRN Reason Stop Dose Admin Iopamidol 70 ml 11/23/24 20:20 11/23/24 20:21 Iopamidol-370 (76%);100ml Bottle IV 11/23/24 20:21 70 ml ONCE ONE Administration Morphine Sulfate 2 mg 11/23/24 19:13 11/23/24 20:13 Morphine 2mg/Ml Syringe IV 11/23/24 19:14 2 mg ONCE ONE Administration Ondansetron HCl 4 mg 11/23/24 19:14 11/23/24 20:14 Ondansetron 4mg/2ml Vial IV 11/23/24 19:15 4 mg ONCE ONE Administration Sodium Chloride 50 ml 11/23/24 20:20 11/23/24 20:21 0.9 % Sodium Chloride 50 Ml Vial IV 11/23/24 20:21 50 ml ONCE ONE Administration ORDERS Category Date Time Status CT abdomen pelvis w con Stat Cat Scan 11/23/24 19:[address] angio chest PE protocol Stat Cat Scan 11/23/24 19:10 Completed POCUS Point of Care (ER Only) Stat Exams 11/23/24 22:32 Ordered XR acute abdomen series Stat Exams 11/23/24 15:18 Completed Complete Blood Count Auto Diff Stat Lab 11/23/24 15:16 Completed Comprehensive Metabolic Panel Stat Lab 11/23/24 15:16 Completed HCG Qualitative, Serum Stat Lab 11/23/24 15:16 Completed Lipase Stat Lab 11/23/24 15:16 Completed NT Pro Brain Natriuretic Pep. Stat Lab 11/23/24 19:31 Completed Trop I [Troponin I] Stat Lab 11/23/24 19:31 Completed Troponin I Q3H Lab 11/24/24 01:15 Ordered Urinalysis and Microscopic Stat Lab 11/23/24 15:16 Completed Urine , HCG Qual. Stat Lab 11/23/24 15:16 Completed Medical Decision Narrative: 33-year-old female presents the emergency department with right upper abdominal pain for the last 5 days, differential diagnose include but not limited to, cholelithiasis, choledocholithiasis, cholecystitis, costochondritis, electrolyte disturbance, pleurisy, pneumothorax, pneumonia, PE, bowel obstruction, diverticulitis, pancreatitis, other musculoskeletal pain, cardiac arrhythmia among others. Will obtain basic laboratory studies, UA, chest and abdomen x-ray, hCG qualitative, CT abdomen pelvis, CTA chest with and without contrast PE protocol, troponin, proBNP, lipase level. Will give 2 mg IV morphine for pain and 4 mg of Zofran for nausea. CBC unremarkable CMP is unremarkable, lipase in normal limits hCG qualitative is negative UA unremarkable with the exception of 1+ bacteria, negative nitrites negative leukocyte esterase. I reviewed the patient chest x-ray, abdominal x-ray along the corresponding radiologic report, nonobstructive bowel gas pattern, mild constipation, no acute cardiopulmonary pathologies. Troponin is less than 0.01, proBNP within normal limits I discussed this patient's case with the attending physician Dr. Gutierrez at shift change, he will be assuming the patient's care/workup, disposition is pending radiology reports of the patient's CT abdomen pelvis and CTA chest. <Dhruv Gutierrez, DO - Last Filed: 11/23/24 23:52> Vital Signs: 11/23/24 15:07 11/23/24 19:30 11/23/24 19:52 Temperature 98 F Temperature Source Oral Pulse Rate 72 70 Pulse Rate [Right] 72 Respiratory Rate 18 Blood Pressure 194/110 H 181/126 H Blood Pressure [Right Arm] 166/110 H Blood Pressure Mean [Right Arm] 128 Blood Pressure Source [Right Arm] Automatic Cuff Blood Pressure Position [Right Arm] Sitting 02 Sat by Pulse Oximetry 100 100 99 Oxygen Delivery Method Room Air 11/23/24 20:01 Temperature Temperature Source Pulse Rate 71 Pulse Rate [Right] Respiratory Rate Blood Pressure 185/124 H Blood Pressure [Right Arm] Blood Pressure Mean [Right Arm] Blood Pressure Source [Right Arm] Blood Pressure Position [Right Arm] 02 Sat by Pulse Oximetry 100 Oxygen Delivery Method Lab Data Lab Results 11/23/24 15:16: WBC 9.2, RBC 4.25, Hgb 13.6, Hct 38.8, MCV 91.3, MCH 32.0 H, MCHC 35.1, RDW 12.3, Plt Count 271, MPV 10.1, Neut % (Auto) 72.9, Lymph % (Auto) 18.3, Greene % (Auto) 6.6, Eos % (Auto) 1.3, Baso % (Auto) 0.7, Neut # (Auto) 6.7, Lymph # (Auto) 1.7, [place] # (Auto) 0.6, Eos # (Auto) 0.1, Baso # (Auto) 0.1, Sodium 140, Potassium 4.0, Chloride 104, Carbon Dioxide 26, Anion Gap 14.0, BUN 15, Creatinine 0.60, Estimated Creat Clear 195, Estimated GFR 117, Est GFR ( Amer) 141, Glucose 97, Calcium 9.9, Total Bilirubin 0.9, AST 22, ALT 12, Alkaline Phosphatase 81, Total Protein 7.6, Albumin 4.4, Globulin 3.2, Albumin/Globulin Ratio 1.4, Lipase 92, Serum HCG, Qual Negative, Urine Color Yellow, Urine Appearance Sl cloudy, Urine pH 6.0, Ur Specific [place] 1.025, Urine Protein Negative, Urine Glucose (UA) Negative, Urine Ketones Negative, Urine Blood Trace-i, Urine Nitrate Negative, Urine Bilirubin Negative, Urine Urobilinogen 0.2, Ur Leukocyte Esterase Negative, Urine RBC None, Urine WBC 3-5, Ur Squamous Epith Cells 5-10, Urine Bacteria 1+, Urine HCG, Qual Negative 11/23/24 19:31: Troponin I < 0.01, NT-Pro-B Natriuret Pep 24.9 Orders (Tests/Meds): ED MEDICATIONS Generic Name Dose Route Start Last Admin Trade Name Freq PRN Reason Stop Dose Admin Sodium Chloride 10 ml 11/23/24 20:20 11/23/24 20:21 Sodium Chloride 0.9% 10ml Syr (Rad Only) IV 12/23/24 20:19 10 ml NEEDED PRN Administration Maintain IV Site Discontinued Medications Generic Name Dose Route Start Last Admin Trade Name Freq PRN Reason Stop Dose Admin Iopamidol 70 ml 11/23/24 20:20 11/23/24 20:21 Iopamidol-370 (76%);100ml Bottle IV 11/23/24 20:21 70 ml ONCE ONE Administration Morphine Sulfate 2 mg 11/23/24 19:13 11/23/24 20:13 Morphine 2mg/Ml Syringe IV 11/23/24 19:14 2 mg ONCE ONE Administration Ondansetron HCl 4 mg 11/23/24 19:14 11/23/24 20:14 Ondansetron 4mg/2ml Vial IV 11/23/24 19:15 4 mg ONCE ONE Administration Sodium Chloride 50 ml 11/23/24 20:20 11/23/24 20:21 0.9 % Sodium Chloride 50 Ml Vial IV 11/23/24 20:21 50 ml ONCE ONE Administration ORDERS Category Date Time Status CT abdomen pelvis w con Stat Cat Scan 11/23/24 19:[address] angio chest PE protocol Stat Cat Scan 11/23/24 19:10 Completed POCUS Point of Care (ER Only) Stat Exams 11/23/24 22:32 Ordered XR acute abdomen series Stat Exams 11/23/24 15:18 Completed Complete Blood Count Auto Diff Stat Lab 11/23/24 15:16 Completed Comprehensive Metabolic Panel Stat Lab 11/23/24 15:16 Completed HCG Qualitative, Serum Stat Lab 11/23/24 15:16 Completed Lipase Stat Lab 11/23/24 15:16 Completed NT Pro Brain Natriuretic Pep. Stat Lab 11/23/24 19:31 Completed Trop I [Troponin I] Stat Lab 11/23/24 19:31 Completed Troponin I Q3H Lab 11/24/24 01:15 Ordered Urinalysis and Microscopic Stat Lab 11/23/24 15:16 Completed Urine , HCG Qual. Stat Lab 11/23/24 15:16 Completed ECG Data Tracing #1: I reviewed this ECG and interpreted as documented below: EKG personally interpreted by me demonstrates normal sinus rhythm with a rate of 69 bpm, normal axis, no [place] prolongation, narrow QRS, no QTc prolongation. No ST elevation or depression. No overt signs of ischemia or arrhythmia Medical Decision Narrative: 33-year-old female presents the emergency department with right upper abdominal pain for the last 5 days, differential diagnose include but not limited to, cholelithiasis, choledocholithiasis, cholecystitis, costochondritis, electrolyte disturbance, pleurisy, pneumothorax, pneumonia, PE, bowel obstruction, diverticulitis, pancreatitis, other musculoskeletal pain, cardiac arrhythmia among others. Will obtain basic laboratory studies, UA, chest and abdomen x-ray, hCG qualitative, CT abdomen pelvis, CTA chest with and without contrast PE protocol, troponin, proBNP, lipase level. Will give 2 mg IV morphine for pain and 4 mg of Zofran for nausea. CBC unremarkable CMP is unremarkable, lipase in normal limits hCG qualitative is negative UA unremarkable with the exception of 1+ bacteria, negative nitrites negative leukocyte esterase. I reviewed the patient chest x-ray, abdominal x-ray along the corresponding radiologic report, nonobstructive bowel gas pattern, mild constipation, no acute cardiopulmonary pathologies. Troponin is less than 0.01, proBNP within normal limits I discussed this patient's case with the attending physician Dr. Gutierrez at shift change, he will be assuming the patient's care/workup, disposition is pending radiology reports of the patient's CT abdomen pelvis and CTA chest. Transfer of care Dr. Gutierrez, I agree with the TAMANNA evaluation assessment above. I have independently evaluated this patient and obtained collateral history. She tells me as well that she has been having right upper quadrant El pain for the last 5 days. Interestingly she tells me that this pain is worse with certain movements like twisting of the torso and lifting of the right arm above the head. On my examination she does have tenderness in the right upper quadrant as well as reproducible tenderness along the right rib cage. She stated that her pain was pleuritic in nature so we did decide to work this patient up with a CT PE study as well as a CT scan of the abdomen and pelvis. CT scans ultimately showed no acute findings other than a left lower lung nodule. Her labs were personally interpreted by me and demonstrated no evidence of leukocytosis or transfusional anemia. No electrolyte derangements or acute kidney injury. Troponin was less than 0.01. Additionally she has no transaminitis, negative lipase, and no elevation of bilirubin to suggest involvement of the biliary tree. hCG is also negative which effectively rules out ectopic, heterotopic, and intrauterine as the cause of her pain. Her urine shows no leukocyte esterase or nitrates which suggest against urinary tract infection as the underlying etiology of her symptoms I did perform a right upper quadrant ultrasound with a gallbladder to ensure that she did not have any evidence of gallbladder pathology. There is no sludge or stones noted on the scan. I was unable to identify the common bile duct. The gallbladder wall is normal in thickness. I do not feel that her symptoms are coming from acute cholecystitis. Given that her pain is positional in nature we will trial her on a short course of Robaxin for muscle relaxation. We have discussed return precautions in the event that she has new or worsening symptoms, intractable nausea and vomiting, intractable pain, or development of fevers. At this time all questions have been answered and all parties are agreeable with the decision to discharge home Procedures <Dhruv Gutierrez DO - Last Filed: 11/23/24 23:52> Miscellaneous Procedure Procedure Performed: Limited Ultrasound Indication:: Ultrasound-guided line placement Indication: - Difficult IV access, numerous unsuccessful sticks Identified structures: - Left basilic vein Location/access site: - Left upper Vessel patency: - Patent Direct visualization? - Yes Impression: Successful placement of 20-gauge IV catheter in the left upper extremity median vein CPT Codes: Venipuncture: 38462-57 Age <3 yo: 61074-91 Age >3yo: 75385-69 Central line <5 yo: 81399-19 Central line >5 yo: 89934-64 Limited right upper quadrant ultrasound Indication: Abdominal Identified structures: Gallbladder, gallbladder wall Findings: Sonographic Andrea sign: Absent Gallstones: Absent Sludge: Absent Pericholecystic fluid: Absent Maximal gallbladder wall thickness (mm): Less than 3 mm normal Common bile duct with (mm): Unable to be identified Impression: Normal gallbladder with no evidence of cholelithiasis or cholecystitis Images were saved to permanent archive This study was technically adequate CPT: 55844-82 This study was performed by me and I personally interpreted all images/videos. Based on my clinical judgment these images were adequate and did not necessitate further imaging. Critical Care <CHELI Santa - Last Filed: 11/23/24 22:15> Critical Care Time Critical Care Time: No
[2024-11-23 19:20] LABS: Urine Pregnancy, HCG Qual. Negative (Negative)
--- NOTE | 2024-11-23 19:25 | ECG_ITS ---
APPROVED REPORT Exam: Resting ECG HR:69 bpm ECG Measurements Heart Rate 69 AXES ME 194 P 54 QRSd 111 QRS 86 QT 382 T 53 QTc 401 Conclusion SINUS RHYTHM MODERATE INTRAVENTRICULAR CONDUCTION DELAY [110+ ms QRS DURATION] BORDERLINE ECG UNCONFIRMED REPORT Electronically signed by : CHARISSA GARCIA, 11/24/2024 00:33:13
[2024-11-23 19:30] VITALS: BP 194/110; PULSE 72; O2SAT 100
[2024-11-23 19:52] VITALS: BP 181/126; PULSE 70; O2SAT 99
[2024-11-23 20:01] VITALS: BP 185/124; PULSE 71; O2SAT 100
[2024-11-23] MEDS: MORPHINE 2MG/ML SYRINGE 2 MG IV (20:13)
[2024-11-23] MEDS: ONDANSETRON 4MG/2ML VIAL 4 MG IV (20:14)
[2024-11-23] MEDS: IOPAMIDOL-370 (76%);100ML BOTTLE 70 ML IV (20:21)
[2024-11-23] MEDS: 0.9 % SODIUM CHLORIDE 50 ML VIAL IV (20:21)
[2024-11-23] MEDS: SODIUM CHLORIDE 0.9% 10ML SYR (RAD ONLY) 10 ML IV (20:21)
[2024-11-23 20:22] LABS: NT Pro Brain Natriuretic Pep. 24.9 pg/mL (0-125)
[2024-11-23 20:28] LABS: Troponin I < 0.01 ng/ml (0.00-0.034)
[2024-11-24 00:03] VITALS: BP 136/99; PULSE 78; RESP 16; TEMP 37.2; O2SAT 100
== END 2024-11-24 00:04 | disposition home or self-care (01) ==
PROVIDERS: Physician Assistant; Emergency Provider Student in an Organized Health Care Education/Training Program; PCP Nurse Practitioner Family
DX: R10.11 Right upper quadrant pain (principal); R07.2 Precordial pain
CPT/HCPCS: 71275; 74021; 74177; 80053; 81001; 81025; 83690; 83880; 84484; 84703; 85025; 93005; 96374; 96375; 99285; J2270; J2405; Q9967